=== PATIENT | female | born 1930 | race Caucasian/White ===

== ENCOUNTER → 2018-12-20 | Outpatient (CLI) | payer OTHER ==
[~2018-12-20] MED LIST: ACET325 PO; ALEN70 PO; ASPI81CH PO; ASPI81EC PO; ATEN50 PO; ATOR10 PO; CALCIUM CARBONATE 1000 MG; CHOL10002 PO; CLOP75 PO; CYAN1000 PO; Cholestyramine378 GM PO; DOCU100 PO; FENO48 PO; FENO54 PO; GLIP5ER PO; HALO.5 PO; HYDACE5 PO; HYDCHL12.5 PO; IRON PO; Icaps Tablet1 EACH PO; LEVFLO250 PO; LORA.5 PO; LOSA50 PO; METF500 PO; METF500C PO; METO50ER PO; OLME20-12. PO; OMEP20ER PO; ONDA4ODT MM; PIOG15 PO; POLY17UD PO; POTPHO PO; PRAV20 PO; QUET100 PO; QUET200 PO; ROSU10TA PO; SITA50T2 PO; SULTRISS PO; TRIHYD253A PO; TRIHYD253B PO; VANCOMYCIN1.25 GM/21 IV; VITEYES
== END | disposition home or self-care (01) ==
LOC: LAB SHORT 12:44 → LAB EV 12:44
DX: R30.0 Dysuria (principal)
CPT/HCPCS: 87086

== ENCOUNTER 2020-05-09 00:16 | Inpatient (IN) | payer OTHER ==
[~2020-05-09] VITALS: Ht 152.4 cm; Wt 68.0 kg
[2020-05-09 01:48] LABS: BASOPHILS ABSOLUTE AUTO 0.05 K/mm3 (0.00-0.23); BASOPHILS PERCENT AUTO 0 % (0-2); EOSINOPHILS ABSOLUTE AUTO 0.17 K/mm3 (0.00-0.68); EOSINOPHILS PERCENT AUTO 1 % (0-6); Hematocrit 39.9 % (33.0-51.0); Hemoglobin 12.8 g/dL (11.5-16.0); IMMATURE GRAN ABSOLUTE AUTO 0.08 K/mm3 (0.00-0.10); IMMATURE GRAN PERCENT AUTO 1 % (0-1); LYMPHOCYTES ABSOLUTE AUTO 1.65 K/mm3 (0.84-5.20); LYMPHOCYTES PERCENT AUTO 11 % (21-46); MONOCYTES ABSOLUTE AUTO 0.92 K/mm3 (0.16-1.47); MONOCYTES PERCENT AUTO 6 % (4-13); Mean Corpuscular HGB 30.1 pg (26.0-34.0); Mean Corpuscular HGB Conc 32.1 g/dL (31.5-36.5); Mean Corpuscular Volume 94 fL (80-100); Mean Platelet Volume 10.8 fL (9.1-12.4); NEUTROPHILS ABSOLUTE AUTO 12.32 K/mm3 (1.96-9.15); NEUTROPHILS PERCENT AUTO 81 % (41-73); Platelet Count 203 K/mm3 (150-400); RDW Coefficient Variation 13.8 % (11.7-14.2); RDW Standard Deviation 47.5 fL (35.1-46.3); Red Blood Cell Count 4.25 M/mm3 (3.80-5.20); White Blood Cell Count 15.19 K/mm3 (4.00-11.30)
[2020-05-09 02:05] LABS: Albumin, Blood 3.1 g/dL (3.4-5.0); Bilirubin, Total 0.3 mg/dL (0.1-1.0); Bun/Creatinine Ratio 21.4 (12.0-20.0); Calcium, Blood 8.2 mg/dL (8.5-10.1); Creatinine, Blood 1.12 mg/dL (0.40-1.00); Globulin, Blood 3.1 g/dL (2.2-4.0); Potassium, Blood 4.1 mmol/L (3.5-5.5); Total Protein, Blood 6.2 g/dL (6.4-8.2)
[2020-05-09 02:09] LABS: Troponin I <0.015 ng/mL (0.000-0.040)
[2020-05-09 06:10] LABS: BASOPHILS ABSOLUTE AUTO 0.03 K/mm3 (0.00-0.23); BASOPHILS PERCENT AUTO 0 % (0-2); EOSINOPHILS ABSOLUTE AUTO 0.02 K/mm3 (0.00-0.68); EOSINOPHILS PERCENT AUTO 0 % (0-6); Hematocrit 40.1 % (33.0-51.0); Hemoglobin 12.7 g/dL (11.5-16.0); IMMATURE GRAN ABSOLUTE AUTO 0.06 K/mm3 (0.00-0.10); IMMATURE GRAN PERCENT AUTO 1 % (0-1); LYMPHOCYTES ABSOLUTE AUTO 1.35 K/mm3 (0.84-5.20); LYMPHOCYTES PERCENT AUTO 11 % (21-46); MONOCYTES ABSOLUTE AUTO 1.06 K/mm3 (0.16-1.47); MONOCYTES PERCENT AUTO 9 % (4-13); Mean Corpuscular HGB 30.1 pg (26.0-34.0); Mean Corpuscular HGB Conc 31.7 g/dL (31.5-36.5); Mean Corpuscular Volume 95 fL (80-100); Mean Platelet Volume 10.7 fL (9.1-12.4); NEUTROPHILS ABSOLUTE AUTO 9.42 K/mm3 (1.96-9.15); NEUTROPHILS PERCENT AUTO 79 % (41-73); Platelet Count 198 K/mm3 (150-400); RDW Coefficient Variation 13.9 % (11.7-14.2); RDW Standard Deviation 48.5 fL (35.1-46.3); Red Blood Cell Count 4.22 M/mm3 (3.80-5.20); White Blood Cell Count 11.94 K/mm3 (4.00-11.30)
[2020-05-09 06:27] LABS: Albumin, Blood 3.1 g/dL (3.4-5.0); Albumin/Globulin Ratio 0.9 (0.8-1.8); Bilirubin, Total 0.7 mg/dL (0.1-1.0); Bun/Creatinine Ratio 22.2 (12.0-20.0); Calcium, Blood 8.4 mg/dL (8.5-10.1); Creatinine, Blood 1.08 mg/dL (0.40-1.00); Globulin, Blood 3.3 g/dL (2.2-4.0); Potassium, Blood 4.1 mmol/L (3.5-5.5); Total Protein, Blood 6.4 g/dL (6.4-8.2)
--- NOTE | 2020-05-09 07:51 | NUR ---
SUMMARY PT ADMITTED TO [facility] FROM ER S/P FALL AND FX HIP.PT QUIET PLEASANT WITH HX DEMENTIA. WENT HOME FROM ER. UNABLE TO DETERMINE IF FLU SHOT.HELD. SENT COVED TEST TO LAB. IV FLUIDS INFUSING. L PEDAL PULSE PER DOPPLER AND R POST TIBIAL PER DOPPLER.BOTH MARKED.RLE EXTERNALLY ROTATED. DNR BAND PLACED WITH ONCOMING NURSE GEOVANNA MEJIA. PT CURRENTLY AWAKE RESTING. APPEARS TO POSSIBLY DO SOME LIP READING?TO BE SEEN BY ORTHO TODAY.
[2020-05-09 08:20] LABS: Influenza A, PCR NEGATIVE (NEGATIVE); Influenza B, PCR NEGATIVE (NEGATIVE); Resp Syncytial Virus, PCR NEGATIVE (NEGATIVE); SARS-Cov-2 (COVID-19) PCR, MMC NEGATIVE (NEGATIVE)
--- NOTE | 2020-05-09 09:55 | NUR ---
MEDS SPOKE TO SPOUSE TO CLARIFY HOW PT TAKES MEDS. STATED TAKES PILLS WHOLE W/WATER 1-2 AT A TIME. REPORTS FOLLOWS ADA DIET, NEEDS ASSISTANCE W/CUTTING UP IN BITE SIZED PIECES.
--- NOTE | 2020-05-09 14:19 | NUR ---
CARE COORDINATION REFERRAL - ADMIT: 05/09/20 DISCHARGE: DX: RIGHT HIP FRACTURE CC: XAVIER CALL: SUZAN RESIDENCE: HOME WITH CAREGIVER: , SUZAN DX: DEMENTIA, BIPOLAR, DM-TYPE 2, CKD-STAGE 3, SEE LIST DME: DM SUPPLIES CCM: REFERRA; 10/17/19 HOME HEALTH: [facility] [id number] SUMMARY: 05/09/20- PER CHART REVIEW WITH DR. LO, PT WILL BE HAVING SURGERY EITHER TODAY OR TOMORROW. NO ETA FOR D/C AT THIS TIME. -DANUTA
--- NOTE | 2020-05-09 16:25 | NUR ---
BS SHOWED 381 PT HAS NOT VOIDED. SPOKE TO DR LO. OBTAINED ORDERS IF BS IS GREATER THAN 500 ML, PLACE BRYAN CATH.
--- NOTE | 2020-05-09 17:29 | NUR ---
SUMMARY PT RESTED COMFORTABLY T/O DAY; PAINFUL W/MOVEMENT. TOLERATING SMALL AMOUNT PO INTAKE; DID NOT REQUIRE INSULIN COVERAGE. PT HAD SM BM THIS AM. HAS NOT VOIDED. BS SHOWED 381. SPOKE TO DR LO. OBTAINED ORDERS IF PT CANNOT VOID AND BS SHOWS GREATER THAN 500 ML, PLACE BRYAN CATH. PT ORIENTED TO SELF. PLEASANT AND COOPERATIVE.
[2020-05-10 05:34] LABS: BASOPHILS ABSOLUTE AUTO 0.02 K/mm3 (0.00-0.23); BASOPHILS PERCENT AUTO 0 % (0-2); EOSINOPHILS ABSOLUTE AUTO 0.09 K/mm3 (0.00-0.68); EOSINOPHILS PERCENT AUTO 1 % (0-6); Hematocrit 36.2 % (33.0-51.0); IMMATURE GRAN ABSOLUTE AUTO 0.06 K/mm3 (0.00-0.10); IMMATURE GRAN PERCENT AUTO 1 % (0-1); LYMPHOCYTES ABSOLUTE AUTO 1.36 K/mm3 (0.84-5.20); LYMPHOCYTES PERCENT AUTO 14 % (21-46); MONOCYTES ABSOLUTE AUTO 1.08 K/mm3 (0.16-1.47); MONOCYTES PERCENT AUTO 11 % (4-13); Mean Corpuscular HGB 30.5 pg (26.0-34.0); Mean Corpuscular HGB Conc 33.1 g/dL (31.5-36.5); Mean Corpuscular Volume 92 fL (80-100); Mean Platelet Volume 11.6 fL (9.1-12.4); NEUTROPHILS ABSOLUTE AUTO 6.92 K/mm3 (1.96-9.15); NEUTROPHILS PERCENT AUTO 73 % (41-73); Platelet Count 188 K/mm3 (150-400); RDW Coefficient Variation 13.4 % (11.7-14.2); RDW Standard Deviation 45.4 fL (35.1-46.3); Red Blood Cell Count 3.94 M/mm3 (3.80-5.20); White Blood Cell Count 9.53 K/mm3 (4.00-11.30)
[2020-05-10 06:12] LABS: Alanine Aminotransfer (ALT/SGP 21 U/L (12-78); Alk Phos 105 U/L (50-136); Anion Gap 7 mmol/L (6-16); Aspartate Aminotrans (AST/SGOT 14 U/L (12-37); Bilirubin, Total 0.7 mg/dL (0.1-1.0); Blood Urea Nitrogen 18 mg/dL (8-24); Bun/Creatinine Ratio 20.4 (12.0-20.0); CO2, Blood 19 mmol/L (21-32); Calcium, Blood 8.2 mg/dL (8.5-10.1); Chloride, Blood 111 mmol/L (98-108); Creatinine, Blood 0.88 mg/dL (0.40-1.00); Glomerular Filtration Rate >60 (60-); Glucose, Blood 172 mg/dL (70-99); Potassium, Blood 3.4 mmol/L (3.5-5.5); Sodium, Blood 137 mmol/L (136-145)
--- NOTE | 2020-05-10 08:20 | NUR ---
SUMMARY PT REMAINS NPO PREOP.INCONTINENT OF URINE.CIRC CHECKS UNCHANGED.
--- NOTE | 2020-05-10 12:12 | NUR ---
History, Chart, Medications and Allergies reviewed before start of procedure.Lungs clear T/O to Auscultation. Pre-Op teaching done. Pt is not oriented, cannot verbalize understanding.
--- NOTE | 2020-05-10 13:31 | NUR ---
HEARING AID REMOVED, PLACED IN PT CHART IN PLASTIC BAG
--- NOTE | 2020-05-10 13:32 | NUR ---
DENTURES LEFT IN PLACE PER DR BOOTH
--- NOTE | 2020-05-10 15:17 | NUR ---
05/10/20- pt having surgery today to fix broken hip. No est ETA for d/c at this time.-bertw
--- NOTE | 2020-05-10 18:27 | NUR ---
SHIFT SUMMARY PT AWAKE AT START OF SHIFT, RESTING QUIETLY SUPINE. PT NPO FOR R HIP SX TODAY. PER SHIFT REPORT, PT WAS ON HOSPICE WITH SEVERE DEMENTIA, BUT FELL AT HOME. PT MEDICATED PER EMAR THIS AM. 18G PLACED TO [facility] FOR SX. DR LO IN TO SEE PT, INSTRUCTED TO KEEP PT COMFORTABLE. PT MEDICATED WITH IV FENTANYL. PT REPORTED IT EFFECTIVE. DAY SX CALLED TO REPORT PT TO BE LEAVING AT 11:30. PHARMACY NOTIFIED TO SEND IV ABX METAL WEATHER STRIPPER TO OR. PT RETURNED TO THIS EVENING. VSS, SEE CHART. ICE PLACED TO R HIP AREA, PER ORDERS. PT LATER MEDICATED FOR C/O PAIN. PT INCONTINENT OF URINE; PT CLEANED AND CHANGED. SEEM TO TOLERATE TURNING BETTER THIS EVENING THAN EARLIER THIS AM. DECLINDED DINNER, BUT DID REQUEST A DRINK OF WATER. CALL LT IN REACH. BETSY SIERRA AND SCD'S IN PLACE.
--- NOTE | 2020-05-11 04:05 | NUR ---
SHIFT SUMMARY PT PLEASANTLY CONFUSED OVERNIGHT. ANSWERING YES/NO QUESTIONS AND ABLE TO STATE NAME AND FOLLOW DIRECTIONS. S/P R HIP ORIF WITH NWB TO R LEG. DRESSINGS TO R HIP CDI OVERNIGHT. PT WAS BLADDER SCANNED AROUND 2230 WHICH SHOWED OVER 300ML; ASSISTED WITH BEDPAN AND ENCOURAGED TO VOID, HOWEVER PT WAS UNABLE TO VOID. STRAIGHT CATH COMPLETED AT 2300 WITH 800ML'S OUT. ATTENS PLACED ON PT AFTERWARD. MEDICATED FOR PAIN WITH OXY PER ORDERS. O2 TITRATED DOWN TO 1L OVERNIGHT. PT RESTING IN BED AT THIS TIME, CALL LIGHT IN REACH.
[2020-05-11 04:33] LABS: BASOPHILS ABSOLUTE AUTO 0.01 K/mm3 (0.00-0.23); BASOPHILS PERCENT AUTO 0 % (0-2); EOSINOPHILS PERCENT AUTO 0 % (0-6); Hemoglobin 10.7 g/dL (11.5-16.0); IMMATURE GRAN ABSOLUTE AUTO 0.06 K/mm3 (0.00-0.10); IMMATURE GRAN PERCENT AUTO 1 % (0-1); LYMPHOCYTES ABSOLUTE AUTO 1.08 K/mm3 (0.84-5.20); LYMPHOCYTES PERCENT AUTO 9 % (21-46); MONOCYTES ABSOLUTE AUTO 1.29 K/mm3 (0.16-1.47); MONOCYTES PERCENT AUTO 11 % (4-13); Mean Corpuscular HGB 30.7 pg (26.0-34.0); Mean Corpuscular HGB Conc 33.4 g/dL (31.5-36.5); Mean Corpuscular Volume 92 fL (80-100); Mean Platelet Volume 11.1 fL (9.1-12.4); NEUTROPHILS PERCENT AUTO 80 % (41-73); Platelet Count 185 K/mm3 (150-400); RDW Coefficient Variation 13.4 % (11.7-14.2); RDW Standard Deviation 45.1 fL (35.1-46.3); Red Blood Cell Count 3.48 M/mm3 (3.80-5.20); White Blood Cell Count 12.34 K/mm3 (4.00-11.30)
[2020-05-11 04:54] LABS: Bun/Creatinine Ratio 21.1 (12.0-20.0); Calcium, Blood 8.2 mg/dL (8.5-10.1); Creatinine, Blood 0.95 mg/dL (0.40-1.00); Magnesium, Blood 1.7 mg/dL (1.6-2.4); Potassium, Blood 3.9 mmol/L (3.5-5.5)
--- NOTE | 2020-05-11 10:00 | NUR ---
DR FERMIN BEEN TO SEE PT.
--- NOTE | 2020-05-11 12:49 | NUR ---
DR LO BEEN TO SEE PT EARLIER TODAY.
--- NOTE | 2020-05-11 16:01 | NUR ---
PT'S HERE. DISCUSSED PT'S STATUS. FEELS SHE IS HAVING ANXIETY AND WOULD BENEFIT FROM HAVING ATIVAN WHICH HE STATES SHE TAKES AT HOME. DR NOTIFIED. SEE ORDER. DISCUSSED PT'S VS INCLUDING HR WITH DR LO.
--- NOTE | 2020-05-11 17:26 | NUR ---
PT CONTINUE TO BE UNABLE TO VOID. BLADDER SCAN LESS THAN 500. DR LO REPORTED EARLIER TO NOT PERFORM S/C UNLESS BLADDER SCAN OVER 500 UNLESS PT UNCOMFORTABLE, DISCUSSED WITH DORR OPERATOR.
--- NOTE | 2020-05-11 17:30 | NUR ---
SHIFT SUMMARY PT EATING AND DRINKING. PT NOT VOID TODAY. PT ENCOURAGED TO VOID ON BEDPAN AND ON BSC WHEN THERAPY WAS HERE TO WORK WITH PT. IT APPEARED SHE DID NOT UNDERSTAND THAT SHE WAS ON THE BSC (TOILET) AND DID NOT VOID. PT WAS BLADDER SCANED X2 TODAY WITH BOTH BEING LESS THAN 500. DR LO REPORTED EARLIER TODAY TO NOT S/C UNTIL BLADDER SCAN OVER 500 UNLESS PT UNCOMFORTABLE. PT APPEARS COMFORTABLE, SMILING WHEN BEING SPOKEN TOO. PT'S WAS HERE TO SEE PT TODAY. PT IN BED WITH TAB ALARM IN PLACE.
--- NOTE | 2020-05-11 19:19 | NUR ---
REPORT BEEN GIVEN TO HS RN. TAB ALARM IN PLACE. DISCUSSED BLADDER SCAN AND PT NOT VOIDING TODAY WITH DR LO REPORTING TO NOT PERFORM S/C UNLESS BLADDER SCAN OVER 500.
--- NOTE | 2020-05-12 05:07 | NUR ---
SHIFT SUMMARY PT HAS BEEN PLEASANTLY CONFUSED OVERNIGHT, ORIENTED TO SELF ONLY. SPEECH DIFFICULT TO UNDERSTAND AND PT IS VERY BIG SANDY. HAS BEEN REPOSITIONED MULT TIMES OVERNIGHT. TOLERATING PO INTAKE, HOWEVER HAS HAD LOW PO INTAKE OVERALL. PO INTAKE ENCOURAGED AND ASSISTED SEVERAL TIMES OVERNIGHT. PT IS INCONTINENT, ATTENS IN PLACE OVERNIGHT. NO ACUTE CHANGES THIS SHIFT. RESTING IN BED AT THIS TIME.
--- NOTE | 2020-05-12 06:03 | NUR ---
PT REPORTS NEEDING TO VOID. ATTENS DRY. UP TO BSC WITH 2X MAX ASSIST. VOIDED ABOUT 100ML. POST-VOID BLADDER SCAN OF 496. PT BACK TO BED. DISCUSSED WITH COPRA SAMPLER. PER DAY SHIFT RN 05/11, HOSPITALIST SAID TO STRAIGHT CATH IF OVER 500ML IN BLADDER SCAN. WILL DISCUSS WITH DAY SHIFT RN.
--- NOTE | 2020-05-12 11:12 | NUR ---
DR LO HERE TO SEE PT. DISCUSSED PT'S STATUS.
--- NOTE | 2020-05-12 16:45 | NUR ---
SHIFT SUMMARY PT BEEN EATING AND DRINKING. PT VOIDED IN ATTENDS. PT BEEN REPOSITIONED MULT TIMES TODAY. PT BEEN RESTING QUIETLY TODAY. PT BEEN ASSISTED WITH ADL'S PRN. PT FAMILY HERE THIS AFTERNOON TO SEE PT. PT BLE ELEVATED ON PILLOW. PT HAS PAS AND TEDS IN PLACE. BED ALARM IN PLACE. TAB ALARM IN PLACE.
--- NOTE | 2020-05-12 18:07 | NUR ---
PT RECENTLY REPORTED TO "CHOKE" ON DINNER. PT DID HAVE HOB ELEVATED. PT COUGHING UP LIQUID WHICH SHE HAD A SMALL AMT OF LIQUID EMESIS. PT SUCTIONED. PT INSTRUCTED TO COUGH WHEN SHE CAUGHT HER BREATH. PT ABLE TO COUGH SMALL AMT OF LIQUID UP. PT HAD SOME AUDIBLE WHEEZES THAT GOT BETTER. PT LS WITH SLIGHT WHEEZE ON UPPER LOBES WHEN AUSCULATED. PT PLACED ON 2LO2NC BIOX 90-91%, PT WAS 85-86% ON ROOM AIR. DR NOTIFIED. REPORTS MAY ORDER ALBUTEROL FOR BREATHING TREATMENT IF SHE WOULD LIKE A TREATMENT. PT REPORTS DOING BETTER AND NO MORE AUDIBLE WHEEZES. RT NOTIFIED.
--- NOTE | 2020-05-12 19:16 | NUR ---
PT RESTING QUIETLY RESP E/U. PT SLEEPING. PT 99% ON 2L02NC. PT 96% ON ROOM AIR. PT CONT TO REST QUIETLY. BED ALARM IN PLACE. JEROME RN UPDATED ON PT'S STATUS.
--- NOTE | 2020-05-13 04:47 | NUR ---
SHIFT SUMMARY PT HAS BEEN PLEASANTLY CONFUSED OVERNIGHT. TAKING PILLS WITH APPLESAUCE W/O DIFFICULTY. ATTENS IN PLACE, CHECKING/CHANGING PRN. USING 2L O2 NC OVERNIGHT TO MAINTAIN O2 SAT ABOVE 92%. PT HAS BEEN SLEEPING WITH HOB ELEVATED. PT HAS DENIED PAIN OVERNIGHT. RESTING IN BED WITH CALL LIGHT IN REACH. BED ALARM ON.
[2020-05-13] MEDS ORDERED: Acetaminophen325 M1 PO (15:21)
[2020-05-13] MEDS ORDERED: DOCU100 PO (15:21)
[2020-05-13] MEDS ORDERED: ROXICODONE5 MG PO (15:22)
[2020-05-13] MEDS ORDERED: SENN187 PO (15:23)
--- NOTE | 2020-05-13 16:58 | NUR ---
05/13/20- pt is stable for discharge home tomorrow morning after a hospital bed has been set up in her home. [facility] will be getting and delivering the bed for the patient as part of their services. Pt will be going back on hospice services. A RN and OT therapist will be at the home tomorrow to help get her settled in her home. Reviewed d/c plan with today at the hospital. He inquired about the covid vaccine that pt and him are scheduled to receive on Wednesday. Reached out to [facility] for options. Will reach out to with options. -bruno
--- NOTE | 2020-05-13 18:45 | NUR ---
SUMMARY: PT IS POD3 R HIP REPAIR. PT ALERT, DISORIENTED. DOES NOT RESPOND WHEN ASKED QUESTIONS BED ALARM ON. SURGICAL SITE WNL, PT GIVEN TYLENOL FOR PAIN. PT SEEMS PAINFUL WHEN REPOSITIONED, OTHERWISE DOES NOT APPEAR PAINFUL. THERAPY UNABLE TO WORK WITH PT PER NOTE. PLAN AT THIS TIME IS FOR PT TO DC HOME TOMORROW ON HOSPICE. I DISCUSSED THIS PLAN WITH PT'S AND DAUGHTER WHO VISITED TODAY. NO ACUTE CONCERNS. WILL REPORT TO SANTOS KATE.
[2020-05-14 02:50] LABS: Source, Urine Catheter
[2020-05-14 02:55] LABS: Bilirubin, Urine Neg (Neg); Blood, Urine 1+ (Neg); Glucose Qualitative, Urine 1+ (Neg); Ketones, Urine 1+ (Neg); Leukocyte Esterase, Urine 1+ (Neg); Nitrite, Urine Neg (Neg); Protein, Urine 1+ (Neg); Urobilinogen, Urine NORM (Normal)
[2020-05-14 03:03] LABS: Appearance, Urine Clear (Clear); Color, Urine Yellow (P-Yellow); Red Blood Cells, Urine 0-2 /hpf (0-2); Squamous Epithelial Cells Rare /hpf (Few); White Blood Cells, Urine 25-50 /hpf (0-5)
[2020-05-14 03:04] LABS: Amorphous Light (0-Heavy); Bacteria Few /hpf
--- NOTE | 2020-05-14 04:25 | NUR ---
SHIFT SUMMARY: PT POD#4 FOR A R HIP REPAIR. AQUACEL DRESSINGS C/D/I. PT PLEASANTLY CONFUSED AND ALERT TO SELF ONLY. FOLLOWING COMMANDS AND COOPERATIVE WITH CARE. HR CONTINUES TO BE TACHY RANGING FROM 100-115. O2 STABLE ON 1L VIA NC. PT PAINFUL WITH REPOSITIONING AND MEDICATED WITH TYLENOL PER EMAR. PT UNABLE TO VOID THIS SHIFT. BLADDER SCAN >557. BRYAN CATHTER PLACED PER ORDERS. 500CC EMPTIED FROM BAG THIS MORNING. UA SENT PER PROTOCOL. CULTURE INDICATED PER LABS. WILL CTM. PT CURRENTLY APPEARS TO BE RESTING COMFORTABLY.
[2020-05-14] MEDS ORDERED: CEPH500 PO (11:37)
--- NOTE | 2020-05-14 15:28 | NUR ---
DISCHARGE: PACKET PRINTED AND PT EDUCATED. PT LEFT UNIT WITH PT BELONGINGS WELL DC PACKET AND EXTRA AQUALCEL DRESSINGS. BRYAN TO REMAIN IN UPON DC PER ORDER. [facility] PICKED UP PT AT ABOUT 1310
== END 2020-05-14 13:21 | disposition hospice, home (50) | DRG 482 ==
LOC: ER 00:16 → SURS 03:48
PROVIDERS: Emergency Medicine; Internal Medicine; Orthopaedic Surgery; ADMIT Internal Medicine
PROC: 0QS634Z Reposition Right Upper Femur with Internal Fixation Device, Percutaneous Approach (ICD-10-PCS; principal; 2020-05-10 12:30)
DX: S72.141A Displaced intertrochanteric fracture of right femur, initial encounter for closed fracture (principal); F03.90 Unspecified dementia, unspecified severity, without behavioral disturbance, psychotic disturbance, mood disturbance, and anxiety; Z79.84 Long term (current) use of oral hypoglycemic drugs; F31.9 Bipolar disorder, unspecified; E11.22 Type 2 diabetes mellitus with diabetic chronic kidney disease; N18.30 Chronic kidney disease, stage 3 unspecified; I25.10 Atherosclerotic heart disease of native coronary artery without angina pectoris; I12.9 Hypertensive chronic kidney disease with stage 1 through stage 4 chronic kidney disease, or unspecified chronic kidney disease; Z90.49 Acquired absence of other specified parts of digestive tract; Z79.82 Long term (current) use of aspirin; Z20.822 Contact with and (suspected) exposure to COVID-19; Z79.01 Long term (current) use of anticoagulants; W18.30XA Fall on same level, unspecified, initial encounter; Y93.9 Activity, unspecified; Y92.9 Unspecified place or not applicable; Z66 Do not resuscitate; R33.9 Retention of urine, unspecified
CPT/HCPCS: 0241U; 36415; 70450; 71045; 72125; 72170; 73560-RT; 74176; 80048; 80053; 81001; 82947; 83690; 83735; 84484; 85025; 87086; 93005; 93010; 96374; 97112; 97162; 97530; 99285-25; A9270; C1713; C1769; J0690; J1100; J1170; J1650; J1885; J2060; J2370; J2405; J2704; J3010; J3370; J3480; J7030; J7050; J7120